=== PATIENT | female | born 1970 | race Two or more races ===

== ENCOUNTER 2022-12-12 09:18 | Outpatient (CLI) | payer OTHER | END 2022-12-12 09:21 | disposition home or self-care (01) | LOC: LAB 09:18 | PROVIDERS: ATTEND Radiology Diagnostic Radiology | DX: K60.3 Anal fistula (principal) ==

== ENCOUNTER 2022-12-12 10:17 | Outpatient (CLI) | payer OTHER | END 2022-12-12 12:35 | disposition home or self-care (01) | LOC: MRI 10:17 | PROVIDERS: ATTEND Surgery | DX: K60.3 Anal fistula (principal) | CPT/HCPCS: 72195 ==

== ENCOUNTER 2022-12-21 04:45 | Day surgery (SDC) | payer OTHER ==
[~2022-12-21] VITALS: Ht 165.1 cm; Wt 83.9 kg
[~2022-12-21 04:45] MED LIST: HYDROCHLOROTHIA50 MG PO; IRBESARTAN300 MG PO; SYNTHROID50 MCG PO; TOPROL XL50 M1 PO
[2022-12-21] MEDS ORDERED: KETO10TA2 PO (08:56)
[2022-12-21] MEDS ORDERED: PERCOCET 5-3251 EACH PO (08:56)
[2022-12-21] MEDS ORDERED: NEURONTIN300 MG PO (08:56)
[2022-12-21] MEDS ORDERED: DERMOPLAST PAIN78 GM TOP (08:57)
== END 2022-12-21 14:15 | disposition home or self-care (01) ==
LOC: CIR.AMB 04:45
PROVIDERS: ATTEND Surgery
DX: K60.3 Anal fistula (principal); Z20.822 Contact with and (suspected) exposure to COVID-19; I10 Essential (primary) hypertension; E03.9 Hypothyroidism, unspecified

== ENCOUNTER 2022-12-25 22:15 | Emergency (ER) | payer OTHER ==
[~2022-12-25] VITALS: Ht 165.1 cm; Wt 83.9 kg
[~2022-12-25 22:15] MED LIST changes: +DERMOPLAST PAIN78 GM TOP; +KETO10TA2 PO; +NEURONTIN300 MG PO; +PERCOCET 5-3251 EACH PO
== END 2022-12-26 01:21 | disposition home or self-care (01) ==
LOC: ER 22:15
DX: K60.4 Rectal fistula (principal)

== ENCOUNTER 2023-05-25 08:34 | Day surgery (SDC) | payer OTHER ==
[~2023-05-25 08:34] MED LIST changes: +METFOR PO
[2023-05-25] MEDS ORDERED: OXYC1TAB9 PO (15:49)
== END 2023-05-25 18:50 | disposition home or self-care (01) ==
LOC: CIR.AMB 08:34
PROVIDERS: ATTEND Surgery
DX: K60.3 Anal fistula (principal); K62.89 Other specified diseases of anus and rectum; I10 Essential (primary) hypertension; Z20.822 Contact with and (suspected) exposure to COVID-19